=== PATIENT | female | born 1945 | race Two or more races ===

== ENCOUNTER 2022-07-06 10:12 | Outpatient (CLI) | payer OTHER ==
[~2022-07-06 10:12] MED LIST: ALLEGRA ALLERG180 MG PO; CALCIUM1 TAB.CHEW PO; CARAFATE1 G PO; COZAAR50 MG PO; NASACORT16.9 ML NS; PREVACID15 MG PO; SYNTHROID75 MCG PO
== END 2022-07-06 10:20 | disposition home or self-care (01) ==
LOC: LAB 10:12
PROVIDERS: ATTEND Internal Medicine Gastroenterology
DX: Z11.52 Encounter for screening for COVID-19 (principal); Z20.822 Contact with and (suspected) exposure to COVID-19; Z20.828 Contact with and (suspected) exposure to other viral communicable diseases

== ENCOUNTER 2022-07-09 05:30 | Day surgery (SDC) | payer OTHER | END 2022-07-09 11:50 | disposition home or self-care (01) | LOC: AMB-ENDOS 05:30 | PROVIDERS: ATTEND Internal Medicine Gastroenterology | DX: K29.60 Other gastritis without bleeding (principal); R10.13 Epigastric pain; K44.9 Diaphragmatic hernia without obstruction or gangrene; Z20.822 Contact with and (suspected) exposure to COVID-19 ==